=== PATIENT | female | born 1990 | race Caucasian/White ===

== ENCOUNTER 2017-02-06 23:26 | Inpatient (IN) | payer MEDICAID ==
[~2017-02-06] VITALS: Ht 175.3 cm; Wt 74.8 kg
[2017-02-06 23:35] VITALS: BP 141/88
--- NOTE | 2017-02-06 23:44 | NUR ---
PT TAKEN TO BED 7
--- NOTE | 2017-02-06 23:44 | NUR ---
26 Y/O F W/C/O LEFT FOOT LAC X 2 DAYS AGO WHILE WALKING AND HIT SIDE WALK; THERE IS OPEN LAC NOTED; SKIN IS RED AND SWOLLEN; PT ARRIVED USING CRUTCHES ASSISTANCE; PT DENIES ANY LOSS OF SENSATION; PT STATES SHE APPLIED TRIPLE ABX CREAM BUT NO RELIEF; HX: DM BS 496; GLUCOPHAGE 500MG BID ; BUT HASNT BEEN COMPLIENT FOR OVER A YEAR. FOOT APPEARS EDEMATOUS, ERYTHEMA NOTED, SMALL LAC TO GREAT TOE, PT STATES HER PAIN IS 10/10. ER MD MADE AWARE.
--- NOTE | 2017-02-06 23:44 | NUR ---
26 Y/O F W/C/O LEFT FOOT LAC X 2 DAYS AGO WHILE WALKING AND HIT SIDE WALK; THERE IS OPEN LAC NOTED; SKIN IS RED AND SWOLLEN; PT ARRIVED USING CRUTCHES ASSISTANCE; PT DENIES ANY LOSS OF SENSATION; PT STATES SHE APPLIED TRIPLE ABX CREAM BUT NO RELIEF. HX: BS 496; GLUCOPHAGE 500MG BID ; BUT HASNT BEEN COMPLIENT FOR OVER A YEAR. FANNIE WEINBERG MADE AWARE.
--- NOTE | 2017-02-06 23:48 | NUR ---
X-Ray at bedside.
[2017-02-06] MEDS ORDERED: INSULIN HUMAN REGULAR 100 UNITS/ML 10 ML VIAL SUBQ ONE (23:50)
[2017-02-07] MEDS ORDERED: VANCOMYCIN 1,000 MG in DEXTROSE 5% 250 ML IV ONE ×2
[2017-02-07] MEDS ORDERED: PIPERACILLIN/TAZOBACTAM 3.375 GM in DEXTROSE 5% 50 ML IV ONE ×2
[2017-02-07] MEDS ORDERED: NACL 0.9% 1,000 ML IV ONE
[2017-02-07] MEDS ORDERED: PIPERACILLIN/TAZOBACTAM 3.375 GM VIAL IV ONE (00:08)
[2017-02-07 00:12] LABS: BASOPHILS # (AUTO) 0.2 K/uL (0.00-0.22); BASOPHILS % (AUTO) 1.5 % (0.0-2.0); EOSINOPHILS # (AUTO) 0.3 K/uL (0-0.4); EOSINOPHILS % (AUTO) 2.7 % (0.0-4.0); HEMATOCRIT 38.7 % (36-48); HEMOGLOBIN 12.8 g/dL (12.0-16.0); LYMPHOCYTES # (AUTO) 1.7 K/uL (2.5-16.5); LYMPHOCYTES % (AUTO) 16.2 % (20.5-51.1); MEAN CORPUSCULAR HEMOGLOBIN 30 pg (27-31); MEAN CORPUSCULAR HGB CONC 33 g/dL (33-37); MEAN CORPUSCULAR VOLUME 89 fL (80-94); MONOCYTES # (AUTO) 0.6 K/uL (0.8-1.0); MONOCYTES % (AUTO) 5.8 % (1.7-9.3); NEUTROPHILS # (AUTO) 7.4 K/uL (1.8-7.7); NEUTROPHILS % (AUTO) 73.8 % (42.2-75.2); PLATELET COUNT (AUTO) 229 K/uL (140-450); RED BLOOD CELL COUNT(AUTO) 4.32 MIL/uL (4.20-5.40); RED CELL DISTRIBUTION WIDTH 12.2 % (11.6-13.7); WHITE BLOOD COUNT (AUTO) 10.3 K/uL (4.8-10.8)
[2017-02-07 00:14] LABS: APPEARANCE,URINE SL CLOUDY (CLEAR); BILIRUBIN,URINE NEGATIVE (NEGATIVE); BLOOD, URINE NEGATIVE (NEGATIVE); COLOR,URINE YELLOW (YELLOW); LEUKOCYTE ESTERASE ,URINE NEGATIVE (NEGATIVE); NITRITE, URINE NEGATIVE (NEGATIVE); UGLUCOSE 3+ (NEGATIVE)
[2017-02-07] MEDS ORDERED: KETOROLAC 30 MG/ML VIAL IVP ONE (00:15)
[2017-02-07 00:29] LABS: RBC,URINE 0-5 (RARE) /HPF (0-5); WBC,URINE 0-5 (RARE) /HPF (0-5)
[2017-02-07] MEDS ORDERED: VANCOMYCIN 1,000 MG VIAL ONE (00:31)
[2017-02-07 00:44] LABS: ANION GAP 9.2 (8-16); CARBON DIOXIDE 29.7 mmol/L (21-32); POTASSIUM 3.9 mmol/L (3.5-5.1)
[2017-02-07 00:45] LABS: CREATININE 0.8 mg/dL (0.6-1.3); TOTAL BILIRUBIN 0.3 mg/dL (0.0-1.0)
[2017-02-07 00:46] LABS: ALBUMIN 3.1 g/dL (3.4-5.0)
--- NOTE | 2017-02-07 00:58 | NUR ---
PT RESTING IN BED, CURRENTLY RECEIVING IV ANTIBIOTICS. NO S/S OF DISTRESS NOTED AT THE MOMENT.
[2017-02-07 01:14] LABS: BARBITURATE, URINE NEGATIVE ng/ml (NEG <=200); BENZODIAZEPINE, URINE NEGATIVE ng/mL (NEG <=200); CANNABINOID, URINE NEGATIVE ng/mL (NEG <=50); COCAINE, URINE NEGATIVE ng/mL (NEG <=300); OPIATE, URINE NEGATIVE ng/mL (NEG <=2000); PHENCYCLIDINE SCREEN,URINE NEGATIVE ng/mL (NEG <=25)
[2017-02-07] MEDS ORDERED: DOCUSATE SODIUM 100 MG GELCAP PO PRN (01:15)
[2017-02-07] MEDS ORDERED: ACETAMINOPHEN 325 MG TAB PO PRN (01:15)
[2017-02-07] MEDS: NACL 0.9% 1,000 ML IV SCH ×3 (01:15→20:49)
[2017-02-07] MEDS ORDERED: ONDANSETRON 4 MG/2 ML VIAL IM/IVP PRN (01:15)
[2017-02-07] MEDS ORDERED: INSULIN HUMAN REGULAR 100 UNITS/ML 10 ML VIAL IVP ONE (01:30)
[2017-02-07 01:42] LABS: PROTHROMBIN TIME 9.7 secs (10.8-13.4)
--- NOTE | 2017-02-07 01:42 | NUR ---
FOOD TRAY PROVIDED FOR PT. PER ER PT OK TO EAT.
--- NOTE | 2017-02-07 02:04 | NUR ---
Dr. Mariano Rivera at bedside evaluating patient.
--- NOTE | 2017-02-07 02:23 | NUR ---
PT RESTING IN BED, C/O PAIN TO L FOOT. ER MADE AWARE.
[2017-02-07 03:34] LABS: CHOL/HDL RATIO 2.3 (1-4.5); FREE T4 (FREE THYROXINE) 0.96 ng/dL (0.76-1.46); MAGNESIUM 1.6 mg/dL (1.8-2.4); PHOSPHORUS 3.3 mg/dL (2.5-4.9); THYROID STIMULATING HORMONE 1.04 uIU/mL (0.34-3.74)
[2017-02-07] MEDS ORDERED: DEXTROSE 50% 50 ML SYR IVP PRN ×2 (03:40→04:30)
--- NOTE | 2017-02-07 03:54 | NUR ---
PT ASLEEP, VSS, NO S/S OF DISTRESS NOTED AT THE MOMENT.
[2017-02-07] MEDS ORDERED: METF500T PO (05:57)
--- NOTE | 2017-02-07 07:05 | NUR ---
RECEIVED REPORT FROM ER NURSE, PT AWAKE AND ALERT, NO SIGNS OF ACUTE DISTRESS. BOWEL SOUNDS ACTIVE IN ALL 4 QUADRANTS. SKIN INTACT. AMBULATORY WITH CRUTCHES AT HOME. CONTINENT TO BOWEL AND BLADDER. IV PATENT AND ASYMPTOMATIC. ORIENTED TO HOSPITAL AND TO UNIT, PATIENT VERBALIZES UNDERSTANDING. BED IN LOW POSITION WITH BILATERAL HALF SIDE RAILS UP, CALL LIGHT WITHIN REACH, WILL CONTINUE TO MONITOR.
--- NOTE | 2017-02-07 07:06 | NUR ---
Patient will be admitted to care of Dr Shaw. Admited to Tele. Will go to room 111A. Belongings list completed. Report to JESSICA Diallo.
[2017-02-07] MEDS: BLOOD GLUCOSE MONITORING 1 DEV DEV FS SCH ×4 (07:30→20:00)
[2017-02-07] MEDS ORDERED: BLOOD GLUCOSE MONITORING 1 DEV DEV FS SCH (07:30)
[2017-02-07 08:00] VITALS: BP_SYST 105; BP_SYST 127; BP_DIAS 74; BP_DIAS 85
[2017-02-07] MEDS ORDERED: metFORMIN 500 MG TAB PO SCH (08:03)
--- NOTE | 2017-02-07 09:30 | NUR ---
DR BERRIOS AT PATIENT BEDSIDE TO PERFORM EXCISION AND DEBRIDEMENT.
[2017-02-07] MEDS: MORPHINE SULFATE 2 MG/ML SYR IVP PRN ×3 (09:36→20:23)
[2017-02-07] MEDS: LACTOBACILLUS RHAMNOSUS GG 1 EACH CAP PO SCH (09:48)
--- NOTE | 2017-02-07 09:50 | NUR ---
POST EXCISION AND DEBRIDEMENT PHOTO TAKEN AND WOUND CULTURE TAKEN TO LAB. PT TOLERATED PROCEDURE WELL. WILL CONTINUE TO MONITOR.
[2017-02-07] MEDS: INSULIN LISPRO SLIDING SCALE 100 UNITS/ML VIAL SUBQ PRN ×3 (09:51→20:02)
[2017-02-07] MEDS: PIPER/TAZO 3.375GM/D5W PREMIX 50 ML IV SCH ×2 (11:30→17:16)
--- NOTE | 2017-02-07 11:33 | NUR ---
RECEIVED ORDER TO TRANSFER TO MED/SURG. NOTED, WILL CARRY OUT.
--- NOTE | 2017-02-07 11:50 | NUR ---
PT SLEEPING, NO SIGNS OF ACUTE DISTRESS. BED IN LOW POSITION WITH BILATERAL HALF SIDE RAILS UP, CALL LIGHT WITHIN REACH, WILL CONTINUE TO MONITOR.
--- NOTE | 2017-02-07 14:00 | NUR ---
PT SITTING UPRIGHT EATING, NO SIGNS OF ACUTE DISTRESS. BED IN LOW POSITION WITH BILATERAL HALF SIDE RAILS UP, CALL LIGHT WITHIN REACH. WILL CONTINUE TO MONITOR.
[2017-02-07] MEDS ORDERED: GABAPENTIN 300 MG CAP PO SCH (15:00)
[2017-02-07 16:00] VITALS: BP 127/85
--- NOTE | 2017-02-07 16:35 | NUR ---
ADMINISTERED HUMALOG 2UNITS. PT TOLERATED WELL, NO SIGNS OF ACUTE DISTRESS. BLOOD SUGAR 182. WILL CONTINUE TO MONITOR.
[2017-02-07] MEDS: metFORMIN 500 MG TAB PO SCH (17:16)
[2017-02-07] MEDS: HYDROcodone/APAP 7.5/325 MG 1 TAB PO PRN (17:22)
--- NOTE | 2017-02-07 18:30 | NUR ---
ASSISTED PT TO BEDSIDE COMMODE. PT VOIDED X1. TOLERATED WELL. BACK IN BED. BED IN LOW POSITION, BILATERAL HALF SIDE RAILS UP, CALL LIGHT WITHIN REACH. WILL CONTINUE TO MONITOR.
--- NOTE | 2017-02-07 19:19 | NUR ---
PT AWAKE AND ALERT, NO SIGNS OF ACUTE DISTRESS. ENDORSED TO PLASTIC PARTS FABRICATOR TRIMMER NURSE FOR CONTINUITY OF CARE.
--- NOTE | 2017-02-07 19:20 | NUR ---
RECEIVED REPORT FROM DAY RN. PATIENT RESTING IN BED, AWAKE ALERT ORIENTED X4, NO S/S OF ACUTE DISTRESS NOTED, RESPIRATION EVEN AND UNLABORED, IV PATENT AND INTACT, INFUSING NS AT 100ML/HR. PLAN OF CARE DISCUSSED, VERBALIZED UNDERSTANDING, CALL LIGHT WITHIN REACH, SAFETY MEASURE ENSURED, WILL CONTINUE TO MONITOR.
--- NOTE | 2017-02-07 22:53 | NUR ---
PATIENT IS SLEEPING IN THE BED, NO S/S OF ACUTE DISTRESS NOTED, RESPIRATION EVEN AND UNLABORED, CALL LIGHT WITHIN REACH, SAFETY MEASURE ENSURED, WILL CONTINUE TO MONITOR.
[2017-02-08] VITALS: BP 120/76
[2017-02-08] MEDS: PIPER/TAZO 3.375GM/D5W PREMIX 50 ML IV SCH ×5 (00:16→23:36)
--- NOTE | 2017-02-08 00:20 | NUR ---
ZOSYN STARTED, PATIENT TOLERATED WELL. NO S/S OF ACUTE DISTRESS NOTED, RESPIRATION EVEN AND UNLABORED, LEFT FOOT ELEVATED ON 2 PILLOWS, CAP REFILL LESS THAN 2 SEC, PATIENT DENIES PAIN AT THIS TIME. CALL LIGHT WITHIN REACH, SAFETY MEASURE ENSURED, WILL CONTINUE TO MONITOR.
--- NOTE | 2017-02-08 02:03 | NUR ---
PATIENT IS SLEEPING AT THIS TIME, NO S/S OF ACUTE DISTRESS NOTED, RESPIRATION EVEN AND UNLABORED, CALL LIGHT WITHIN REACH, SAFETY MEASURE ENSURED, WILL CONTINUE TO MONITOR.
--- NOTE | 2017-02-08 04:19 | NUR ---
PATIENT STILL ASLEEP, NO S/S OF ACUTE DISTRESS NOTED, RESPIRATION EVEN AND UNLABORED, CALL LIGHT WITHIN REACH, SAFETY MEASURE ENSURED, WILL CONTINUE TO MONITOR.
[2017-02-08] MEDS: MORPHINE SULFATE 2 MG/ML SYR IVP PRN ×4 (05:19→20:08)
--- NOTE | 2017-02-08 05:30 | NUR ---
AFTER USING THE BATHROOM, PATIENT STATED SHE WAS IN SEVERE PAIN 9/10 ON HER LEFT FOOT. MEDICATION GIVEN ORDERED, PATIENT RESTING IN BED, NO S/S OF ACUTE DISTRESS NOTED, WILL CONTINUE TO MONITOR.
[2017-02-08 05:39] LABS: BASOPHILS # (AUTO) 0.1 K/uL (0.00-0.22); BASOPHILS % (AUTO) 1.5 % (0.0-2.0); EOSINOPHILS # (AUTO) 0.2 K/uL (0-0.4); HEMATOCRIT 34.6 % (36-48); HEMOGLOBIN 11.6 g/dL (12.0-16.0); LYMPHOCYTES # (AUTO) 1.4 K/uL (2.5-16.5); LYMPHOCYTES % (AUTO) 14.3 % (20.5-51.1); MEAN CORPUSCULAR HEMOGLOBIN 29 pg (27-31); MEAN CORPUSCULAR HGB CONC 33 g/dL (33-37); MEAN CORPUSCULAR VOLUME 88 fL (80-94); MONOCYTES # (AUTO) 0.4 K/uL (0.8-1.0); MONOCYTES % (AUTO) 4.1 % (1.7-9.3); NEUTROPHILS # (AUTO) 7.5 K/uL (1.8-7.7); NEUTROPHILS % (AUTO) 78.1 % (42.2-75.2); PLATELET COUNT (AUTO) 221 K/uL (140-450); RED BLOOD CELL COUNT(AUTO) 3.95 MIL/uL (4.20-5.40); RED CELL DISTRIBUTION WIDTH 12.4 % (11.6-13.7); WHITE BLOOD COUNT (AUTO) 9.6 K/uL (4.8-10.8)
[2017-02-08 06:01] LABS: ANION GAP 11.6 (8-16); CARBON DIOXIDE 26.3 mmol/L (21-32); CREATININE 0.5 mg/dL (0.6-1.3); POTASSIUM 3.9 mmol/L (3.5-5.1)
[2017-02-08 06:06] LABS: MAGNESIUM 1.4 mg/dL (1.8-2.4)
[2017-02-08] MEDS ORDERED: INSULIN DETEMIR 100 UNITS/ML 10 ML VIAL SUBQ SCH ×2 (06:25→09:00)
[2017-02-08] MEDS: BLOOD GLUCOSE MONITORING 1 DEV DEV FS SCH ×4 (06:47→21:31)
[2017-02-08] MEDS: INSULIN LISPRO SLIDING SCALE 100 UNITS/ML VIAL SUBQ PRN ×4 (06:48→21:42)
[2017-02-08] MEDS: NACL 0.9% 1,000 ML IV SCH ×2 (07:15→17:15)
--- NOTE | 2017-02-08 07:30 | NUR ---
ENDORSED PLAN OF CARE TO DAY RN, PATIENT IS IN STABLE CONDITION.
--- NOTE | 2017-02-08 07:31 | NUR ---
RECEIVED BEDSIDE REPORT FROM WREATH MACHINE TENDER RN. PT AWAKE AND ALERT, NO SIGNS OF ACUTE DISTRESS. BOWEL SOUNDS ACTIVE IN ALL 4 QUADRANTS. LEFT FOOT WOUND COVERED WITH CLEAN AND DRY SUMANTH WRAP. AMBULATORY WITH CRUTCHES. IV PATENT AND ASYMPTOMATIC. PATIENT DENIES PAIN AT THIS TIME. BED IN LOW POSITION WITH BILATERAL HALF SIDE RAILS UP, CALL LIGHT WITHIN REACH. WILL CONTINUE TO MONITOR.
[2017-02-08 08:00] VITALS: BP 129/79
--- NOTE | 2017-02-08 08:11 | NUR ---
PATIENT HAS BEEN SCREENED AND CATEGORIZED HIGH NUTRITION RISK. PATIENT WILL BE SEEN WITHIN 1-2 DAYS OF ADMISSION. 02/07/17-02/08/[address]
[2017-02-08] MEDS: metFORMIN 500 MG TAB PO SCH ×2 (08:29→17:36)
[2017-02-08] MEDS: GABAPENTIN 300 MG CAP PO SCH (08:30)
[2017-02-08] MEDS: LACTOBACILLUS RHAMNOSUS GG 1 EACH CAP PO SCH (08:30)
[2017-02-08] MEDS: MAG SULF 2000 MG/WATER PREMIX 50 ML IV SCH ×2 (08:31→10:52)
--- NOTE | 2017-02-08 09:30 | NUR ---
ASSISTED PT TO BEDSIDE COMMODE, TOLERATED WELL, BACK IN BED. SHOWING NO SIGNS OF ACUTE DISTRESS. BED IN LOW POSITION. BILATERAL HALF SIDE RAILS UP. CALL LIGHT WITHIN REACH. WILL CONTINUE TO MONITOR.
[2017-02-08 10:59] LABS: T4 (THYROXINE) 6.4 ug/dL (4.5-12.0)
--- NOTE | 2017-02-08 12:00 | NUR ---
PT SITTING UP IN BED, EATING LUNCH. SHOWING NO SIGNS OF ACUTE DISTRESS. BED IN LOW POSITION. BILATERAL HALF SIDE RAILS UP. CALL LIGHT WITHIN REACH. WILL CONTINUE TO MONITOR.
--- NOTE | 2017-02-08 13:26 | NUR ---
02/08/17 RD INITIAL ASSESSMENT COMPLETED PLEASE REFER TO NUTRITION ASSESSMENT UNDER CARE ACTIVITY FOR ESTIMATED NUTRITIONAL NEEDS. 1. CONTINUE CONSISTENT CARB 60 MGS DIET 2. PROVIDE NUTRITION ED CATION NEEDED 3. RD TO FOLLOW UP WITHIN 3-5 DAYS; MODERATE RISK IVAN GOODMAN, ANISH
--- NOTE | 2017-02-08 14:10 | NUR ---
PT SLEEPING. SHOWING NO SIGNS OF ACUTE DISTRESS. BED IN LOW POSITION. BILATERAL HALF SIDE RAILS UP. CALL LIGHT WITHIN REACH. WILL CONTINUE TO MONITOR.
[2017-02-08 16:00] VITALS: BP 134/87
--- NOTE | 2017-02-08 16:45 | NUR ---
CHECKED BLOOD SUGAR. RESULTS 234, INSULIN COVERAGE NEEDED.
--- NOTE | 2017-02-08 16:50 | NUR ---
PT AWAKE AND ALERT, RESTING IN BED. SHOWING NO SIGNS OF ACUTE DISTRESS. BED IN LOW POSITION. BILATERAL HALF SIDE RAILS UP. CALL LIGHT WITHIN REACH. WILL CONTINUE TO MONITOR.
--- NOTE | 2017-02-08 18:30 | NUR ---
PT SITTING UP IN BED, AWAKE AND ALERT. SHOWING NO SIGNS OF ACUTE DISTRESS. BED IN LOW POSITION. BILATERAL HALF SIDE RAILS UP. CALL LIGHT WITHIN REACH. WILL CONTINUE TO MONITOR.
--- NOTE | 2017-02-08 19:43 | NUR ---
ENDORSED PT TO NIGHT NURSE. PT IN STABLE CONDITION.
--- NOTE | 2017-02-08 19:45 | NUR ---
PATIENT IS CURRENTLY RESTING IN BED AWAKE ALERT ORIENTED AND WITH COMPLAINS OF PAIN 9/10 TO HER LT FOOT AT THIS TIME SHE IS MOANING.IVF CONTINUES TO INFUSING WELL IV SITE PATENT NO INFILTRATION NOTED.LT FOOT IS WRAPPED WITH SUMANTH BANDAGE AND IS CLEAND AND DRY ITS ALSO KEPT ELEVATED ON A PILLOW. I INSTRUCTED THE PATIENT IS SHE COULD WIGGLE HER TOES AND SHE WIGGLED HER TOES.WILL CHECK VITALS SIGNS AND THEN WILL INFORM JESSICA GAMBOA ABOUT PATIENT'S PAIN 9/10 SO HE CAN MEDICATE HER.
[2017-02-08 20:00] VITALS: BP 141/90
--- NOTE | 2017-02-08 20:00 | NUR ---
Patient's Plan of Care was discussed and reviewed with MACKENZIE: KATHERINE
--- NOTE | 2017-02-08 20:38 | NUR ---
PATIENT SLEEPING AT THIS TIME CALL LIGHT WITHIN REACH.WILL CONTINUE TO MONITOR.
--- NOTE | 2017-02-08 21:31 | NUR ---
PATIENT COMFORTABLE NO DISTRESS ACCUCHECK WAS DONE.
--- NOTE | 2017-02-08 23:06 | NUR ---
PATIENT SLEEPING CALL LIGHT WITHIN REACH.
[2017-02-09 00:15] VITALS: BP 140/78
[2017-02-09] MEDS ORDERED: MORPHINE SULFATE 2 MG/ML SYR ONE (01:03)
[2017-02-09] MEDS: MORPHINE SULFATE 2 MG/ML SYR IVP PRN ×5 (01:18→20:41)
--- NOTE | 2017-02-09 02:27 | NUR ---
PATIENT SLEEPING IN BED,IVF INFUSING WELL CALL LIGHT WITHIN REACH WILL CONTINUE TO MONITOR.
[2017-02-09] MEDS: NACL 0.9% 1,000 ML IV SCH ×3 (03:15→23:15)
--- NOTE | 2017-02-09 04:32 | NUR ---
PATIENT STABLE SLEEPING COMFORTABLY IN BED IN NO DISTRESS WILL CONTINUE TO MONITOR IVF INFUSING WELL IV SITE PATENT.
[2017-02-09] MEDS: PIPER/TAZO 3.375GM/D5W PREMIX 50 ML IV SCH ×3 (05:00→17:02)
[2017-02-09] MEDS: BLOOD GLUCOSE MONITORING 1 DEV DEV FS SCH ×4 (06:25→20:59)
--- NOTE | 2017-02-09 06:30 | NUR ---
PATIENT IS CURRENTLY RESTING IN BED IN NO DISTRESS CONTINUES TO SLEEP.IVF INFUSING WELL IV SITE PATENT CALL LIGHT WITHIN REACH WILL CONTINUE TO MONITOR.
[2017-02-09] MEDS: INSULIN LISPRO SLIDING SCALE 100 UNITS/ML VIAL SUBQ PRN ×4 (06:36→21:00)
[2017-02-09 07:06] LABS: BASOPHILS # (AUTO) 0.3 K/uL (0.00-0.22); BASOPHILS % (AUTO) 3.9 % (0.0-2.0); EOSINOPHILS # (AUTO) 0.2 K/uL (0-0.4); EOSINOPHILS % (AUTO) 2.3 % (0.0-4.0); HEMATOCRIT 33.8 % (36-48); HEMOGLOBIN 11.5 g/dL (12.0-16.0); LYMPHOCYTES # (AUTO) 2.2 K/uL (2.5-16.5); LYMPHOCYTES % (AUTO) 24.8 % (20.5-51.1); MEAN CORPUSCULAR HEMOGLOBIN 31 pg (27-31); MEAN CORPUSCULAR HGB CONC 34 g/dL (33-37); MEAN CORPUSCULAR VOLUME 89 fL (80-94); MONOCYTES # (AUTO) 0.8 K/uL (0.8-1.0); NEUTROPHILS # (AUTO) 5.3 K/uL (1.8-7.7); PLATELET COUNT (AUTO) 224 K/uL (140-450); RED BLOOD CELL COUNT(AUTO) 3.79 MIL/uL (4.20-5.40); RED CELL DISTRIBUTION WIDTH 12.3 % (11.6-13.7); WHITE BLOOD COUNT (AUTO) 8.8 K/uL (4.8-10.8)
--- NOTE | 2017-02-09 07:10 | NUR ---
PATIENT STABLE REPORT ENDORSED AT BEDSIDE TO JESSICA ATWOOD.
--- NOTE | 2017-02-09 07:11 | NUR ---
RECEIVED REPORT FROM THE BILLING CLINICIAN NURSE AT BEDSIDE FOR CONTINUITY OF CARE. PT IS SLEEPING SOUNDLY. NO SIGNS OF DISTRESS. WILL BE BACK TO ASSESS PT LATER.
[2017-02-09 07:19] LABS: ANION GAP 9.8 (8-16); CREATININE 0.5 mg/dL (0.6-1.3); POTASSIUM 3.8 mmol/L (3.5-5.1)
[2017-02-09 07:30] LABS: MAGNESIUM 1.4 mg/dL (1.8-2.4); PHOSPHORUS 3.2 mg/dL (2.5-4.9)
--- NOTE | 2017-02-09 07:45 | NUR ---
PT AWAKE AND ORIENTED. EATING BREAKFAST. PT IS L FOOT IS WRAPPED, ELEVATED ON A PILLOW. PT S/P EXCISIONAL DEBRIDEMENT ON 02/07. IV IS ON L AC 20G NS 100ML INFUSING. CRUTCHES AND BEDSIDE COMMODE AT BEDSIDE. PT V/S WITHIN NORMAL LIMITS. DENIES PAIN AT THIS TIME. PLAN FOR TODAY: KEEP PT COMFORTABLE AND CONTROL BS. WILL CONTINUE TO MONITOR PT.
[2017-02-09 08:00] VITALS: BP 126/92
[2017-02-09] MEDS: GABAPENTIN 300 MG CAP PO SCH (08:53)
[2017-02-09] MEDS: metFORMIN 500 MG TAB PO SCH ×2 (08:53→17:02)
[2017-02-09] MEDS: LACTOBACILLUS RHAMNOSUS GG 1 EACH CAP PO SCH (08:53)
[2017-02-09] MEDS ORDERED: INSULIN DETEMIR 100 UNITS/ML 10 ML VIAL SUBQ SCH (09:00)
--- NOTE | 2017-02-09 11:00 | NUR ---
PT SLEEPING SOUNDLY. NO SIGNS OF DISTRESS. WILL CONTINUE TO MONITOR PT.
--- NOTE | 2017-02-09 12:00 | NUR ---
ADMINISTERED ZOSYN AND PAIN MED. 01/03. PT TOLERATED WELL. WILL CONTINUE TO MONITOR PT.
--- NOTE | 2017-02-09 14:45 | NUR ---
PT SLEEPING SOUNDLY. NO SIGNS OF DISTRESS. WILL CONTINUE TO MONITOR PT.
[2017-02-09] MEDS ORDERED: MAG SULF 2000 MG/WATER PREMIX 50 ML IV SCH (15:53)
[2017-02-09 16:00] VITALS: BP 112/73
--- NOTE | 2017-02-09 16:00 | NUR ---
VISITING WITH FAMILY. NO SIGNS OF DISTRESS. WILL CONTINUE TO MONITOR PT.
--- NOTE | 2017-02-09 18:20 | NUR ---
EATING DINNER. NO COMPLAINTS AT THIS TIME. DISCUSSED DC, POSSIBLY TOMORROW AFTER PT EVAL. WILL CONTINUE TO MONITOR PT.
--- NOTE | 2017-02-09 19:39 | NUR ---
ENDORSED PT TO THE LAW EXAMINER NURSE AT BEDSIDE FOR CONTINUITY OF CARE. PT IN STABLE CONDITION.
--- NOTE | 2017-02-09 19:40 | NUR ---
RECD. RESTING IN BED, AWAKE, A/OX4. RESPIRATION EVEN AND UNLABORED. IV OF NS AT 100 ML/HR INFUSING, LEFT AC, G20. LEFT FOOT WITH SUMANTH WRAPPED BANDAGE, TOES POSITIVE FOR SENSATION AND MOVEMENT, CAPILLARY REFILL LESS 3 SECONDS. INSTRUCTED TO CALL NURSE BEFORE GETTING OOB FOR ASSISTANCE. PLAN OF CARE FOR THE SHIFT DISCUSSED. VERBALIZED UNDERSTANDING. PAIN IN THE LEFT FOOT /, TOLERABLE. WILL CALL NURSE WHEN PAIN INCREASES. SAFETY MEASURES ENFORCED.
[2017-02-09 20:15] VITALS: BP 118/69
--- NOTE | 2017-02-09 21:00 | NUR ---
Patient's Plan of Care was discussed and reviewed with RETIREMENT VILLAGE MANAGER: SHERIN CHIN
--- NOTE | 2017-02-09 21:00 | NUR ---
SNACK GIVEN FOR THE NIGHT, ATE 100%.
[2017-02-10] VITALS: BP 120/73
--- NOTE | 2017-02-10 00:17 | NUR ---
AWAKE, RESTING IN BED. RESPIRATION EVEN AND UNLABORED. ENDORSED TO CARLENE, CHARGE NURSE FOR CONTINUITY OF CARE.
--- NOTE | 2017-02-10 00:18 | NUR ---
RECEIVED REPORT FROM SHERIN MANN.PT IS TAKING REST.IVF IS IN PROGRESS.NO C/O PAIN NOW.WILL CONTINUE MONITORING.
[2017-02-10] MEDS: PIPER/TAZO 3.375GM/D5W PREMIX 50 ML IV SCH ×3 (00:59→12:08)
[2017-02-10] MEDS: MORPHINE SULFATE 2 MG/ML SYR IVP PRN ×2 (01:13→08:23)
--- NOTE | 2017-02-10 06:52 | NUR ---
SLEPT WELL.GJ=[id number].WILL COVER PER SLIDING SCALE.NO C/O PAIN OR ANY DISCOMFORT AT THIS TIME.
[2017-02-10] MEDS: BLOOD GLUCOSE MONITORING 1 DEV DEV FS SCH ×2 (07:04→12:22)
[2017-02-10] MEDS: INSULIN LISPRO SLIDING SCALE 100 UNITS/ML VIAL SUBQ PRN ×2 (07:05→12:10)
[2017-02-10 07:06] LABS: BASOPHILS # (AUTO) 0.3 K/uL (0.00-0.22); BASOPHILS % (AUTO) 3.8 % (0.0-2.0); EOSINOPHILS # (AUTO) 0.2 K/uL (0-0.4); EOSINOPHILS % (AUTO) 3.5 % (0.0-4.0); HEMATOCRIT 33.2 % (36-48); HEMOGLOBIN 11.2 g/dL (12.0-16.0); LYMPHOCYTES % (AUTO) 28.9 % (20.5-51.1); MEAN CORPUSCULAR HEMOGLOBIN 30 pg (27-31); MEAN CORPUSCULAR HGB CONC 34 g/dL (33-37); MEAN CORPUSCULAR VOLUME 88 fL (80-94); MONOCYTES # (AUTO) 0.4 K/uL (0.8-1.0); NEUTROPHILS # (AUTO) 3.9 K/uL (1.8-7.7); NEUTROPHILS % (AUTO) 57.8 % (42.2-75.2); PLATELET COUNT (AUTO) 249 K/uL (140-450); RED BLOOD CELL COUNT(AUTO) 3.76 MIL/uL (4.20-5.40); RED CELL DISTRIBUTION WIDTH 12.2 % (11.6-13.7); WHITE BLOOD COUNT (AUTO) 6.8 K/uL (4.8-10.8)
--- NOTE | 2017-02-10 07:20 | NUR ---
REPORT RECEIVED FROM SOLVENT MIXER NURSE, PT SLEEPING, RESP EVEN UNLABORED ON ROOM, PT AROUSES EASILY BY VOICE, INITIAL ASSESSMENT DONE, LEFT FOOT WITH SUMANTH BANDAGE DRESSING, GOOD CMS DISTALLY, LEFT LEG ELEVATED ON PILLOWS, DENIES PAIN OR DISCOMFORT, PLAN OF CARE REVIEWED, PT VERBALIZED UNDERSTANDING, CALL ENGLISH WITHIN REACH, SIDE RAILS UP X2, BED LOCKED IN LOW POSITION, WILL CONTINUE TO MONITOR.
[2017-02-10 07:23] LABS: ANION GAP 9.3 (8-16); CARBON DIOXIDE 28.4 mmol/L (21-32); CREATININE 0.6 mg/dL (0.6-1.3); POTASSIUM 3.7 mmol/L (3.5-5.1)
[2017-02-10 07:34] LABS: MAGNESIUM 1.5 mg/dL (1.8-2.4); PHOSPHORUS 3.4 mg/dL (2.5-4.9)
[2017-02-10 08:00] VITALS: BP 122/72
[2017-02-10] MEDS: LACTOBACILLUS RHAMNOSUS GG 1 EACH CAP PO SCH (08:18)
[2017-02-10] MEDS: GABAPENTIN 300 MG CAP PO SCH (08:19)
[2017-02-10] MEDS: metFORMIN 500 MG TAB PO SCH (08:19)
--- NOTE | 2017-02-10 08:23 | NUR ---
PT C/O LEFT FOOT PAIN 01/03, PRN MORPHINE GIVEN AT THIS TIME, SCHEDULED PO MEDS GIVEN, PT SRIRAM WELL, LEVEMIRE SQ TO LEFT UPPER ARM, WILL CONTINUE TO MONITOR.
[2017-02-10] MEDS ORDERED: INSULIN DETEMIR 100 UNITS/ML 10 ML VIAL SUBQ SCH (09:00)
[2017-02-10] MEDS ORDERED: MAGNESIUM OXIDE 400 MG TAB PO SCH (09:00)
--- NOTE | 2017-02-10 12:12 | NUR ---
PT COMPLAINED OF LEFT FOOT PAIN OF 8/10. NORCO PRN GIVEN AT THIS TIME. SCHEDULED ZOSYN STARTED. IV SITE WITHIN NORMAL LIMITS. INSULIN 6 UNITS GIVEN FOR BLOOD SUGAR 263 ON RIGHT UPPER ARM. PATIENT SITTING UP FOR LUNCH. WILL CONTINUE TO MONITOR.
[2017-02-10] MEDS: HYDROcodone/APAP 7.5/325 MG 1 TAB PO PRN (12:21)
[2017-02-10] MEDS ORDERED: HUMSLIDE SUBQ (14:13)
[2017-02-10] MEDS ORDERED: LEVEMIR SUBQ (14:13)
[2017-02-10] MEDS ORDERED: METF500T4 PO (14:13)
[2017-02-10] MEDS ORDERED: GABA-638 PO (14:13)
[2017-02-10] MEDS ORDERED: CLIN300C2 PO (14:14)
--- NOTE | 2017-02-10 15:26 | NUR ---
REPORT GIVEN TO JM LOPEZ.
--- NOTE | 2017-02-10 17:00 | NUR ---
DISCHARGE INSTRUCTION AND PRESCRIPTION GIVEN. VERBALIZED UNDERSTANDING POST OP SHOES GIVEN , DRESSING CHANGE AND EXTRA SUPPLIES GIVEN FOR DRESSING CHANGE . D/C PATIENT ACCOMPANY WITH HER STABLE CONDITION UPON DISCHARGE.
== END 2017-02-10 18:55 | disposition home or self-care (01) | DRG 351 ==
LOC: MED 23:26 → MTU 02-07 01:15
PROVIDERS: ADMIT Family Medicine; ATTEND Family Medicine
PROC: 0JBR0ZZ Excision of Left Foot Subcutaneous Tissue and Fascia, Open Approach (ICD-10-PCS; principal; 2017-02-07)
DX: S96.122A Laceration of muscle and tendon of long extensor muscle of toe at ankle and foot level, left foot, initial encounter (principal); E11.00 Type 2 diabetes mellitus with hyperosmolarity without nonketotic hyperglycemic-hyperosmolar coma (NKHHC); E11.40 Type 2 diabetes mellitus with diabetic neuropathy, unspecified; I11.9 Hypertensive heart disease without heart failure; E44.0 Moderate protein-calorie malnutrition; E87.8 Other disorders of electrolyte and fluid balance, not elsewhere classified; E83.42 Hypomagnesemia; E87.1 Hypo-osmolality and hyponatremia; L03.032 Cellulitis of left toe; E11.65 Type 2 diabetes mellitus with hyperglycemia; X58.XXXA Exposure to other specified factors, initial encounter; F43.9 Reaction to severe stress, unspecified; R00.0 Tachycardia, unspecified; F15.10 Other stimulant abuse, uncomplicated; F17.210 Nicotine dependence, cigarettes, uncomplicated; R74.0 Nonspecific elevation of levels of transaminase and lactic acid dehydrogenase [LDH]; Z90.49 Acquired absence of other specified parts of digestive tract; Z56.0 Unemployment, unspecified; Z68.24 Body mass index [BMI] 24.0-24.9, adult; Y93.89 Activity, other specified; Y92.89 Other specified places as the place of occurrence of the external cause; Y99.8 Other external cause status; Z79.84 Long term (current) use of oral hypoglycemic drugs
CPT/HCPCS: 36415; 71010; 73630; 80048; 80053; 80305; 81001; 81025; 82009; 82150; 82948; 83036; 83605; 83690; 83735; 83880; 84100; 84436; 84439; 84443; 84479; 84484; 85025; 85610; 85730; 87040; 87070; 87075; 87077; 87081; 87186; 87205; 93005; 93925; 93970; 96361; 96365; 96366; 96367; 96372; 96375; 99285; J1815; J1885; J2270; J2543; J3370; J3475; J7030; J7060; Q0092

== ENCOUNTER 2017-03-11 22:45 | Inpatient (IN) | payer MEDICAID ==
[~2017-03-11] VITALS: Ht 175.3 cm; Wt 67.6 kg
[~2017-03-11 22:45] MED LIST: CLIN300C2 PO; GABA-638 PO; HUMSLIDE SUBQ; LEVEMIR SUBQ; METF500T4 PO
--- NOTE | 2017-03-11 22:57 | NUR ---
PT TAKEN TO OF2
--- NOTE | 2017-03-11 23:04 | NUR ---
Note undone in EDM - 03/11/17 at 2322 by MEDSP 26Y/F PT. PRESNTS TO ED WITH C/O LT. FOOT PAIN. PT. WAS ADMITTED AT [facility] FOR CUT WOUND TO LT. FOOT, HAVENT F/U AFTER D/C. ON SATURDAY FOUND OUT LT. FOOT SWELLING. NO MEDICAL HX. AAO X4, AMBULATORY WITH CRUSHES. LT. FOOT SUMANTH WRAP, MILD SWELLING NOTED. NO DISCHARGE. C/O PAIN 12/03. VSS, ER MADE AWARE OF PT. STATUS.
--- NOTE | 2017-03-11 23:04 | NUR ---
26Y/F PT. PRESNTS TO ED WITH C/O LT. FOOT PAIN. PT. WAS ADMITTED AT [facility] FOR CUT WOUND TO LT. FOOT, HAVENT F/U AFTER D/C. ON SATURDAY FOUND OUT LT. FOOT SWELLING. HX. DM AAO X4, AMBULATORY WITH CRUSHES. LT. FOOT SUMANTH WRAP, MILD SWELLING NOTED. NO DISCHARGE. C/O PAIN 12/03. VSS, ER MADE AWARE OF PT. STATUS.
--- NOTE | 2017-03-11 23:11 | NUR ---
Dr. Moreno evaluating patient at bedside.
--- NOTE | 2017-03-11 23:23 | NUR ---
PT MOVED TO BED 6
[2017-03-11] MEDS ORDERED: KETOROLAC 30 MG/ML VIAL IVP ONE (23:25)
[2017-03-11] MEDS ORDERED: LEVOFLOXACIN 500 MG/D5W PREMIX 100 ML IV ONE (23:25)
[2017-03-11] MEDS ORDERED: PIPERACILLIN/TAZOBACTAM 3.375 GM in DEXTROSE 5% 50 ML IV ONE (23:25)
--- NOTE | 2017-03-11 23:29 | NUR ---
Patient noted to have existing wounds upon arrival to ER. Photos taken of wound and placed in chart. Wound covered with dressing. Physician informed.
--- NOTE | 2017-03-11 23:32 | NUR ---
lab at bedside
--- NOTE | 2017-03-11 23:32 | NUR ---
xray at bedside
[2017-03-11] MEDS ORDERED: INSULIN HUMAN REGULAR 100 UNITS/ML 10 ML VIAL IVP ONE (23:35)
--- NOTE | 2017-03-11 23:35 | NUR ---
Patient noted to have existing wounds upon arrival to ER. Photos taken of wound and placed in chart. Wound covered with dressing. Physician informed.
[2017-03-11] MEDS ORDERED: PIPERACILLIN/TAZOBACTAM 3.375 GM VIAL IV ONE (23:37)
[2017-03-11 23:47] LABS: BASOPHILS # (AUTO) 0.2 K/uL (0.00-0.22); BASOPHILS % (AUTO) 2.6 % (0.0-2.0); EOSINOPHILS # (AUTO) 0.1 K/uL (0-0.4); EOSINOPHILS % (AUTO) 0.8 % (0.0-4.0); HEMATOCRIT 40.7 % (36-48); HEMOGLOBIN 13.3 g/dL (12.0-16.0); LYMPHOCYTES # (AUTO) 1.9 K/uL (2.5-16.5); LYMPHOCYTES % (AUTO) 22.3 % (20.5-51.1); MEAN CORPUSCULAR HEMOGLOBIN 29 pg (27-31); MEAN CORPUSCULAR HGB CONC 33 g/dL (33-37); MEAN CORPUSCULAR VOLUME 88 fL (80-94); MONOCYTES # (AUTO) 0.3 K/uL (0.8-1.0); NEUTROPHILS # (AUTO) 6.1 K/uL (1.8-7.7); NEUTROPHILS % (AUTO) 70.3 % (42.2-75.2); PLATELET COUNT (AUTO) 426 K/uL (140-450); RED BLOOD CELL COUNT(AUTO) 4.65 MIL/uL (4.20-5.40); RED CELL DISTRIBUTION WIDTH 12.3 % (11.6-13.7); WHITE BLOOD COUNT (AUTO) 8.6 K/uL (4.8-10.8)
[2017-03-11] MEDS ORDERED: NACL 0.9% 1,000 ML IV ONE (23:55)
[2017-03-11] MEDS ORDERED: NACL 0.9% 2,000 ML IV ONE (23:55)
[2017-03-12 00:04] LABS: ALBUMIN 3.3 g/dL (3.4-5.0); ANION GAP 8.7 (8-16); CARBON DIOXIDE 31.7 mmol/L (21-32); POTASSIUM 4.4 mmol/L (3.5-5.1); TOTAL BILIRUBIN 0.3 mg/dL (0.0-1.0)
[2017-03-12] MEDS: NACL 0.9% 1,000 ML IV SCH ×4 (00:39→22:40)
[2017-03-12] MEDS ORDERED: DOCUSATE SODIUM 100 MG GELCAP PO PRN (00:40)
[2017-03-12] MEDS ORDERED: KETOROLAC 30 MG/ML VIAL IVP PRN (00:40)
[2017-03-12] MEDS ORDERED: ACETAMINOPHEN 325 MG TAB PO PRN (00:40)
[2017-03-12] MEDS ORDERED: ONDANSETRON 4 MG/2 ML VIAL IM/IVP PRN (00:40)
[2017-03-12] MEDS ORDERED: PIPERACILLIN/TAZOBACTAM 3.375 GM in DEXTROSE 5% 50 ML IV SCH ×4 (00:45)
[2017-03-12] MEDS ORDERED: INSULIN DETEMIR 100 UNITS/ML 10 ML VIAL SUBQ SCH ×2 (00:50→01:45)
[2017-03-12] MEDS ORDERED: SODIUM CHLORIDE 1 GM TAB PO SCH (00:50)
--- NOTE | 2017-03-12 01:00 | NUR ---
Patient will be admitted to care of DR. CHAVEZ. Admited to TELEMETRY. Will go to room 105A. Belongings list completed. Report to TRINH LOPEZ.
--- NOTE | 2017-03-12 01:30 | NUR ---
PT ARRIVED VIA GURNEY FROM ER. PT IS AAOX4, ON ROOM AIR, NO SIGNS OF ACUTE DISTRESS. LEFT FOOT CELLULITIS WRAPPED WITH GAUZE BANDAGE, DRY AND INTACT. AMBULATORY WITH THE USE OF CRUTCHES. IV ACCESS PATENT, INTACT AND ASYMPTOMATIC. PLAN OF CARE DISCUSSED, PT VERBALIZED UNDERSTANDING, BED ON LOW POSITION, BILATERAL HALF SIDE RAILS UP, CALL LIGHT WITHIN REACH, WILL CONTINUE TO MONITOR.
[2017-03-12] MEDS ORDERED: MORPHINE SULFATE 4 MG/ML SYR IVP SCH (01:40)
[2017-03-12] MEDS: metFORMIN 500 MG TAB PO SCH ×3 (01:45→16:42)
[2017-03-12 01:50] VITALS: BP 134/90
[2017-03-12] MEDS ORDERED: DEXTROSE 50% 50 ML SYR IVP PRN (01:50)
[2017-03-12 02:00] LABS: APPEARANCE,URINE HAZY (CLEAR); BILIRUBIN,URINE NEGATIVE (NEGATIVE); BLOOD, URINE TRACE-I (NEGATIVE); COLOR,URINE YELLOW (YELLOW); LEUKOCYTE ESTERASE ,URINE TRACE (NEGATIVE); NITRITE, URINE NEGATIVE (NEGATIVE); PH,URINE 6.5 (5.0-9.0); UGLUCOSE 3+ (NEGATIVE)
[2017-03-12 02:00] LABS: PROTHROMBIN TIME 9.3 secs (10.8-13.4)
[2017-03-12 02:11] LABS: BARBITURATE, URINE NEG. ng/ml (NEG <=200); BENZODIAZEPINE, URINE NEG. ng/mL (NEG <=200); CANNABINOID, URINE NEG. ng/mL (NEG <=50); COCAINE, URINE NEG. ng/mL (NEG <=300); OPIATE, URINE NEG. ng/mL (NEG <=2000); PHENCYCLIDINE SCREEN,URINE NEG. ng/mL (NEG <=25)
[2017-03-12 02:15] LABS: CHOL/HDL RATIO 3.3 (1-4.5); FREE T4 (FREE THYROXINE) 0.84 ng/dL (0.76-1.46); MAGNESIUM 1.6 mg/dL (1.8-2.4); PHOSPHORUS 3.6 mg/dL (2.5-4.9); THYROID STIMULATING HORMONE 0.73 uIU/mL (0.34-3.74)
[2017-03-12] MEDS: MORPHINE SULFATE 2 MG/ML SYR IVP PRN ×4 (02:37→19:39)
[2017-03-12 02:40] LABS: RBC,URINE 0-5 (RARE) /HPF (0-5); WBC,URINE 20-60 /HPF (0-5)
--- NOTE | 2017-03-12 03:45 | NUR ---
PT IS SLEEPING, EASY TO AROUSE. NO SIGNS OF ACUTE DISTRESS, BED IN LOW POSITION, BILATERAL HALF SIDE RAILS UP, CALL LIGHT WITHIN REACH, WILL CONTINUE TO MONITOR.
--- NOTE | 2017-03-12 03:50 | NUR ---
CALLED JESSICA HOGAN (ORCHESTRA TEACHER) TO REQUEST 1 SALT 1GM TABLET THAT IS DUE TO BE ADMINISTERED TO PT. STATED MEDICATION IS NOT AVAILABLE AT THIS TIME, UNABLE TO OVERRIDE. NOTIFIED DR BARNES THAT MEDICATION WAS NOT AVAILABLE, AND WOULD BE UNABLE TO ADMINISTER MED AT THIS TIME. DR BARNES STATED IT WAS FINE AND FOR IT TO BE ADMINISTERED IN THE MORNING WITH NEXT SCHEDULED DOSE DUE AT 0900.
[2017-03-12 04:00] VITALS: BP 129/85
[2017-03-12] MEDS: BLOOD GLUCOSE MONITORING 1 DEV DEV FS SCH ×4 (06:59→21:56)
[2017-03-12] MEDS: INSULIN LISPRO SLIDING SCALE 100 UNITS/ML VIAL SUBQ PRN ×4 (07:08→21:59)
--- NOTE | 2017-03-12 07:10 | NUR ---
TRIED TO CALL AND PAGED DR. BARNES REGARDING PT HIGH GLUCOSE READING OF 585, BUT WAS UNSUCCESSFUL. THE NUMBER PAGED IS OUT OF SERVICE, CALLED THE RESIDENTS NUMBER WELL BUT NO ANSWER. CHARGE NURSE ROSEMARY MADE AWARE. UNABLE TO REACH DR. BARNES, WILL ENDORSE TO AM NURSE. 10 UNITS OF HUMALOG WERE ADMINISTERED. PT IS AA0X4, BED ON LOW POSITION, BILATERAL HALF SIDE RAILS UP, CALL LIGHT WITHIN REACH, WILL CONTINUE TO MONITOR.
--- NOTE | 2017-03-12 07:20 | NUR ---
RECEIVED PT REPORT FROM WAD BLANKING PRESS ADJUSTER. PT IS AWAKE, ALERT, OX4. PT SHOWED NO S/S OF ACUTE DISTRESS. DRESSING NOTED ON THE LEFT FOOT. DRESSING IS DRY AND INTACT. IV NOTED ON THE RIGHT HAND 20G. NOT SIGNS OF INFILTRATION OR SWELLING. PT AMB W/ CRUTCHES, CALL LIGHT AND PERSONAL ITEMS WITH REACH. BED IN LOW POSITION.
--- NOTE | 2017-03-12 07:28 | NUR ---
ENDORSED PT TO AM NURSE FOR CONTINUITY OF CARE, PT IS STABLE. BLOOD GLUCOSE READING OF 585, AM NURSE MADE AWARE. .
--- NOTE | 2017-03-12 07:30 | NUR ---
MADE DR BARNES AWARE OF PATIENT'S BLOOD SUGAR OF 585
[2017-03-12 08:00] VITALS: BP 128/68
[2017-03-12] MEDS: INSULIN DETEMIR 100 UNITS/ML 10 ML VIAL SUBQ SCH (08:16)
[2017-03-12] MEDS: LACTOBACILLUS RHAMNOSUS GG 1 EACH CAP PO SCH (08:20)
[2017-03-12] MEDS: GABAPENTIN 300 MG CAP PO SCH (08:20)
[2017-03-12] MEDS: PANTOPRAZOLE 40 MG INJ VIAL IVP SCH (08:21)
--- NOTE | 2017-03-12 09:12 | NUR ---
PATIENT HAS BEEN SCREENED AND CATEGORIZED HIGH NUTRITION RISK. PATIENT WILL BE SEEN WITHIN 1-2 DAYS OF ADMISSION. 03/12/17-03/13/[address]
--- NOTE | 2017-03-12 09:58 | NUR ---
WOUND CARE EVALUATION NOTES: REASON FOR EVALUATION: MULTIPLE WOUNDS COMPLETE SKIN ASSESSMENT DONE ON THIS 16 Y/O FEMALE PATIENT FROM HOME TO [facility], WITH INITIAL DIAGNOSIS OF LEFT FOOT PAIN. PAST MEDICAL HISTORY INCLUDE DM II AND SUBSTANCE USE. ALL ABOVE INFORMATION WAS OBTAINED FROM PT AND THE ADMISSION H&P. LABS ARE WBC 8.6, H/H 13.3/40.7, GLUCOSE 625, ALBUMIN 3.3, PT/INR 9.3/0.9 PTT 27.2. CURRENT MEDS INCLUDE METFORMIN, INSULIN, GABAPENTIN AND PANTOPRAZOLE. PATIENT IS AWAKE, ALERT, AND ABLE TO FOLLOW COMMANDS. SKIN WARM TO TOUCH WNL, SHORT TOENAILS, NO EDEMA, HAIR GROWTH AND BILATERAL PEDAL PULSES PRESENT. PAIN 2/10, WOUND CULTURE OBTAINED, PLAN OF CARE DISCUSSED WITH PT AND PRIMARY NURSE. PT ABLE TO VERBALIZE UNDERSTANDING. INTEGUMENTARY: LEFT HALLUX ABSCESS 3X2 CM, SMALL AMOUNT OF PURULENT DRAINAGE, ERYTHEMATOUS MULTIPLE SCABS ON LEFT 2ND, 3RD AND 4TH TOES S/P LACERATIONS RECOMMENDATIONS: -SURGEON TO CONSULT LEFT HALLUX ABSCESS FOR POSSIBLE I&D -PIANO ACCOMPANIST CONSULT -VENOUS DOPPLER U/S -CLEANSE LEFT HALLUX ABSCESS WITH NS, APPLY XEROFORM AND DRY DRESSING WRAP WITH KERLIX QD AND PRN IF SOILING -CLEAN MULTIPLE SCABS ON LEFT 2ND, 3RD AND 4TH TOES WITH NS. PAT DRY, PAINT WITH BETADINE SOLUTION QD AND OFFICE COORDINATOR -TURN AND REPOSITION PATIENT Q2H -ASSESS AND MONITOR SKIN CONDITION DURING POSITION CHANGE, PLEASE PAY ATTENTION TO LLE AND HEELS -OFFLOAD BILATERAL HEELS BY PLACING PILLOWS UNDER CALVES AT ALL TIMES, UNLESS OTHERWISE CONTRAINDICATED -PRESSURE REDISTRIBUTION SURFACE THERAPY -KEEP SKIN CLEAN AND DRY AT ALL TIMES. RECOMMENDATIONS DISCUSSED WITH PRIMARY RN AND DR. SEGUNDO WILL FOLLOW UP PATIENT Q 7 -10 DAYS AND PRN. PLEASE CONTACT WOUND CARE NURSE FOR ANY CONCERNS AND CHANGES IN WOUND CONDITION Addendum: 03/12/17 at 1021 by I Naima(Bernadette) Mckeon RN CORRECTION: PT IS 26 Y/O
--- NOTE | 2017-03-12 11:38 | NUR ---
CALLED [facility]LS[facility] AND SPOKE WITH IVY. HE IS THE CM, AND I DO NOT HAVE TO FAX TO [place]. FAXED INITIAL REVIEW TO JOAN[facility] OLSON [phone] PHONE [phone] IVY [phone]
[2017-03-12] MEDS: SODIUM CHLORIDE 1 GM TAB PO SCH (11:49)
[2017-03-12] MEDS ORDERED: MAG SULF 2000 MG/WATER PREMIX 50 ML IV SCH (12:00)
--- NOTE | 2017-03-12 12:06 | NUR ---
03/12/17 RD INITIAL ASSESSMENT COMPLETED PLEASE REFER TO NUTRITION ASSESSMENT UNDER CARE ACTIVITY FOR ESTIMATED NUTRITIONAL NEEDS. 1. CONTINUE 60 GMS CONSISTENT CARBOHYDRATE DIET 2. VITAMIN C FOR WOUND HEALING 250 MG A DAY 3. PROVIDE NUTRITION EDUCATION NEEDED 4. RD TO FOLLOW UP WITHIN 2-3 DAYS; HIGH RISK IVAN GOODMAN RD
--- NOTE | 2017-03-12 12:30 | NUR ---
INCISION AND DRAINAGE OF THE LEFT FOOT WOUND DONE AT BEDSIDE BY DR. ADKINS. PICTURE TAKEN, FILED IN THE CHART.
[2017-03-12 13:04] LABS: BASOPHILS # (AUTO) 0.2 K/uL (0.00-0.22); BASOPHILS % (AUTO) 1.7 % (0.0-2.0); EOSINOPHILS # (AUTO) 0.1 K/uL (0-0.4); HEMATOCRIT 35.6 % (36-48); LYMPHOCYTES # (AUTO) 2.9 K/uL (2.5-16.5); LYMPHOCYTES % (AUTO) 31.4 % (20.5-51.1); MEAN CORPUSCULAR HEMOGLOBIN 30 pg (27-31); MEAN CORPUSCULAR HGB CONC 34 g/dL (33-37); MEAN CORPUSCULAR VOLUME 88 fL (80-94); MONOCYTES # (AUTO) 0.3 K/uL (0.8-1.0); MONOCYTES % (AUTO) 3.8 % (1.7-9.3); NEUTROPHILS # (AUTO) 5.7 K/uL (1.8-7.7); NEUTROPHILS % (AUTO) 62.1 % (42.2-75.2); PLATELET COUNT (AUTO) 393 K/uL (140-450); RED BLOOD CELL COUNT(AUTO) 4.06 MIL/uL (4.20-5.40); RED CELL DISTRIBUTION WIDTH 12.3 % (11.6-13.7); WHITE BLOOD COUNT (AUTO) 9.2 K/uL (4.8-10.8)
[2017-03-12 13:16] LABS: ANION GAP 10.1 (8-16); CARBON DIOXIDE 25.9 mmol/L (21-32); CREATININE 0.6 mg/dL (0.6-1.3)
[2017-03-12 16:00] VITALS: BP 123/80
--- NOTE | 2017-03-12 19:28 | NUR ---
ENDORSED PT TO NIGHT NURSE FOR CONTINUITY OF CARE, PT IS IN STABLE CONDITION.
--- NOTE | 2017-03-12 19:29 | NUR ---
RECEIVED PT FROM DAY NURSE, PT IN STABLE CONDITION NO S/S OF DISTRESS NOTED. PT IS AAOX4 ON RA. IV TO R HAND 22G PATENT AND INTACT. RESPIRATIONS ARE EVEN AND UNLABORED, BOWEL SOUNDS PRESENT. PT HAS DRESSING IN PLACE ON LEFT FOOT, DRY AND INTACT. INITIAL ASSESSMENT COMPLETE. PLAN OF CARE DISCUSSED WITH PT, VERBALIZED UNDERSTANDING. ALL SAFETY PRECAUTIONS MET, CALL LIGHT WITHIN REACH, WILL CONTINUE TO MONITOR
--- NOTE | 2017-03-12 22:00 | NUR ---
ALL DUE MEDICATIONS WERE GIVEN, PT TOLERATED WELL. PT GIVEN SANDWICH PER REQUEST. ALL NEEDS MET, WILL CONTINUE TO MONITOR
[2017-03-13] VITALS: BP 123/84
--- NOTE | 2017-03-13 | NUR ---
PT VS STABLE, NO S/S OF DISTRESS NOTED. WILL CONTINUE TO MONITOR
[2017-03-13] MEDS: MORPHINE SULFATE 2 MG/ML SYR IVP PRN ×2 (01:25→07:42)
[2017-03-13 06:05] LABS: BASOPHILS # (AUTO) 0.4 K/uL (0.00-0.22); BASOPHILS % (AUTO) 4.1 % (0.0-2.0); EOSINOPHILS # (AUTO) 0.1 K/uL (0-0.4); EOSINOPHILS % (AUTO) 0.8 % (0.0-4.0); HEMOGLOBIN 11.2 g/dL (12.0-16.0); LYMPHOCYTES # (AUTO) 2.7 K/uL (2.5-16.5); LYMPHOCYTES % (AUTO) 29.1 % (20.5-51.1); MEAN CORPUSCULAR HEMOGLOBIN 30 pg (27-31); MEAN CORPUSCULAR HGB CONC 34 g/dL (33-37); MEAN CORPUSCULAR VOLUME 88 fL (80-94); MONOCYTES # (AUTO) 0.4 K/uL (0.8-1.0); MONOCYTES % (AUTO) 4.2 % (1.7-9.3); NEUTROPHILS # (AUTO) 5.8 K/uL (1.8-7.7); NEUTROPHILS % (AUTO) 61.8 % (42.2-75.2); PLATELET COUNT (AUTO) 330 K/uL (140-450); RED BLOOD CELL COUNT(AUTO) 3.77 MIL/uL (4.20-5.40); RED CELL DISTRIBUTION WIDTH 12.5 % (11.6-13.7); WHITE BLOOD COUNT (AUTO) 9.4 K/uL (4.8-10.8)
[2017-03-13 06:21] LABS: ANION GAP 6.9 (8-16); CARBON DIOXIDE 29.9 mmol/L (21-32); CREATININE 0.5 mg/dL (0.6-1.3); POTASSIUM 3.8 mmol/L (3.5-5.1)
[2017-03-13] MEDS: BLOOD GLUCOSE MONITORING 1 DEV DEV FS SCH ×4 (06:36→20:20)
[2017-03-13] MEDS: INSULIN LISPRO SLIDING SCALE 100 UNITS/ML VIAL SUBQ PRN ×4 (06:40→20:26)
[2017-03-13] MEDS: NACL 0.9% 1,000 ML IV SCH ×2 (07:29→22:09)
--- NOTE | 2017-03-13 07:33 | NUR ---
GAVE REPORT TO DAY NURSE AT BEDSIDE FOR CONTINUITY PT IN STABLE CONDITION, NO S/S OF DISTRESS NOTED.
--- NOTE | 2017-03-13 07:40 | NUR ---
RECEIVED REPORT FROM TENSILE TESTER NURSE, PT IS RESTING IN BED A/OX4, AMBULATES WITH ASSIST, IV IS ON THE FA, PATENT, INTACT, FLUSHING WELL, PATIENT'S LEFT FOOT IS WRAPPED WITH BANDAGE, NO S/S OF RESPIRATORY DISTRESS OR DISCOMFORT NOTED, DISCUSSED PLAN OF CARE WITH PT, PT VERBALIZED UNDERSTANDING, SAFETY/FALL PRECAUTIONS ARE IN PLACE, CALL LIGHT WITHIN REACH, WILL CONTINUE TO MONITOR.
[2017-03-13 08:00] VITALS: BP 145/98
[2017-03-13] MEDS: LACTOBACILLUS RHAMNOSUS GG 1 EACH CAP PO SCH (08:39)
[2017-03-13] MEDS: metFORMIN 500 MG TAB PO SCH ×2 (08:39→16:56)
[2017-03-13] MEDS: GABAPENTIN 300 MG CAP PO SCH (08:39)
[2017-03-13] MEDS: PANTOPRAZOLE 40 MG INJ VIAL IVP SCH (08:39)
--- NOTE | 2017-03-13 08:39 | NUR ---
DUE MEDICATION GIVEN, PT TOLERATED WELL, CALL LIGHT IS WITHIN REACH.
[2017-03-13] MEDS: SODIUM CHLORIDE 1 GM TAB PO SCH (08:40)
[2017-03-13] MEDS: INSULIN DETEMIR 100 UNITS/ML 10 ML VIAL SUBQ SCH (09:00)
[2017-03-13] MEDS ORDERED: MAG SULF 2000 MG/WATER PREMIX 50 ML IV SCH (09:30)
[2017-03-13 09:51] LABS: T3 UPTAKE 23 % (24-39); T4 (THYROXINE) 6.8 ug/dL (4.5-12.0)
--- NOTE | 2017-03-13 10:50 | NUR ---
PT IS SLEEPING IN BED, CALL LIGHT IS WITHIN REACH.
--- NOTE | 2017-03-13 12:00 | NUR ---
PT RESTING IN BED, WATCHING TV, CALL LIGHT WITHIN REACH.
--- NOTE | 2017-03-13 12:02 | NUR ---
FAXED CONCURRENT REVIEW TO [facility] [phone] PHONE [phone] IVY I SPOKE WITH IVY AND HE SAID FOR HOME HEALTH, CALL THEIR STAFF THERAPIST AT [phone], DEDE FAX FOR DEDE IS [phone]
--- NOTE | 2017-03-13 14:50 | NUR ---
PT IS RESTING IN BED AT THIS TIME, WATCHING TV, PATIENT'S FAMILY MEMBER IS AT BEDSIDE, ALL NEEDS ARE MET, CALL LIGHT IS WITHIN REACH, WILL CONTINUE TO MONITOR.
[2017-03-13 16:00] VITALS: BP 124/81
--- NOTE | 2017-03-13 16:08 | NUR ---
PT RESTING IN BED, BLOOD SUGAR CHECKED, BS 319, CALL LIGHT WITHIN REACH, WILL CONTINUE TO MONITOR.
[2017-03-13] MEDS: HYDROcodone/APAP 7.5/325 MG 1 TAB PO PRN (17:03)
--- NOTE | 2017-03-13 19:21 | NUR ---
ENDORSED PT TO STENCIL CUTTER NURSE FOR CONTINUITY OF CARE, PT STABLE AT THIS TIME.
--- NOTE | 2017-03-13 19:30 | NUR ---
RECEIVED PT IN STABLE CONDITION FROM AM NURSE. AWAKE,ALERT AND ORIENTED X4. MED SURG PT. WITH NO C/O ANY PAIN ON THE LT FOOT ULCER AT THIS TIME. HAS LT FOOT DRESSING WITH SUMANTH WRAP. WITH IVF INFUSING WELL ON THE RT HAND #22. CLEAR AND PATENT. PLAN OF CARE DISCUSSED AND VERBALIZED UNDERSTANDING. CALL LIGHT PLACED WITHIN EASY REACH. HAS CANE AT BEDSIDE. ENCOURAGED TO CALL IF NEED ASSISTANCE. WILL CONTINUE TO MONITOR.
--- NOTE | 2017-03-13 20:26 | NUR ---
BLOOD SUGAR WAS CHECKED RESULT 308. HUMALOG INSULIN COVERAGE GIVEN SUB Q. PROVIDED SOME SNACK. WILL CONTINUE TO MONITOR.
--- NOTE | 2017-03-13 22:00 | NUR ---
MADE ROUNDS. SLEEPING WELL AT THIS TIME. NO S/S OF ANY DISCOMFORT NOTED.
[2017-03-13 23:58] VITALS: BP 126/83
[2017-03-14] MEDS: HYDROcodone/APAP 7.5/325 MG 1 TAB PO PRN (00:04)
--- NOTE | 2017-03-14 02:30 | NUR ---
MADE ROUNDS. PT IS ASLEEP. NO S/S OF ANY DISCOMFORT NOR PAIN NOTED.
[2017-03-14] MEDS: NACL 0.9% 1,000 ML IV SCH (04:10)
--- NOTE | 2017-03-14 04:22 | NUR ---
MADE ROUNDS. ASLEEP .NO S/S OF ANY DISCOMFORT/ PAIN NOTED.
[2017-03-14 04:29] VITALS: BP 131/80
[2017-03-14] MEDS: MORPHINE SULFATE 2 MG/ML SYR IVP PRN ×3 (04:36→22:00)
[2017-03-14] MEDS: BLOOD GLUCOSE MONITORING 1 DEV DEV FS SCH ×5 (06:13→20:44)
[2017-03-14] MEDS: INSULIN LISPRO SLIDING SCALE 100 UNITS/ML VIAL SUBQ PRN ×4 (06:15→20:42)
--- NOTE | 2017-03-14 06:15 | NUR ---
BLOOD SUGAR WAS CHECKED THIS AM RESULT 197. HUMALOG INSULIN COVERAGE 2 UNITS SUBQ GIVEN.
[2017-03-14 06:46] LABS: OSMOLALITY,URINE 558 mOsmol/kg (.)
[2017-03-14 06:52] LABS: BASOPHILS # (AUTO) 0.2 K/uL (0.00-0.22); BASOPHILS % (AUTO) 3.7 % (0.0-2.0); EOSINOPHILS # (AUTO) 0.1 K/uL (0-0.4); EOSINOPHILS % (AUTO) 1.1 % (0.0-4.0); HEMATOCRIT 32.5 % (36-48); HEMOGLOBIN 10.7 g/dL (12.0-16.0); LYMPHOCYTES # (AUTO) 2.4 K/uL (2.5-16.5); LYMPHOCYTES % (AUTO) 36.4 % (20.5-51.1); MEAN CORPUSCULAR HEMOGLOBIN 29 pg (27-31); MEAN CORPUSCULAR HGB CONC 33 g/dL (33-37); MEAN CORPUSCULAR VOLUME 88 fL (80-94); MONOCYTES # (AUTO) 0.4 K/uL (0.8-1.0); NEUTROPHILS # (AUTO) 3.5 K/uL (1.8-7.7); NEUTROPHILS % (AUTO) 52.8 % (42.2-75.2); PLATELET COUNT (AUTO) 323 K/uL (140-450); RED BLOOD CELL COUNT(AUTO) 3.69 MIL/uL (4.20-5.40); RED CELL DISTRIBUTION WIDTH 12.3 % (11.6-13.7); WHITE BLOOD COUNT (AUTO) 6.7 K/uL (4.8-10.8)
[2017-03-14 07:06] LABS: CARBON DIOXIDE 29.7 mmol/L (21-32); CREATININE 0.5 mg/dL (0.6-1.3); POTASSIUM 3.7 mmol/L (3.5-5.1)
--- NOTE | 2017-03-14 07:11 | NUR ---
ENDORSED PT IN STABLE CONDITION TO AM NURSE FOR CONTINUITY OF CARE.
--- NOTE | 2017-03-14 07:12 | NUR ---
RECEIVED REPORT FROM THE LICENSED EMBALMER SUPERVISOR NURSE AT BEDSIDE FOR CONTINUITY OF CARE. PT IS SLEEPING. NO SIGNS OF DISTRESS. WILL BE BACK TO ASSESS PT. IV ON R HAND 22G NS 110ML/HR INFUSING.
--- NOTE | 2017-03-14 08:00 | NUR ---
PT AWAKE AND ALERT, READY TO EAT BREAKFAST. INTRODUCED MYSELF AND UPDATED THE BOARD. V/S WITHIN NORMAL RANGE. DENIES PAIN AT THIS TIME. EDUCATED PT ABOUT IMPORTANCE OF FREQUENT BS CHECKS AND COMPLIANCE WITH DIABETIC MEDICATION. EDUCATED PT ABOUT HYGIENE AND HOW TO TAKE CARE OF HER DIABETIC ULCERS ON FEET. PT VERBALIZED UNDERSTANDING. PT'S L FOOT IS WRAPPED WITH SUMANTH BANDAGE. DR MURRAY TEAM ON CASE. MAG IS 1.4 TODAY. SAME YESTERDAY, EVEN AFTER K-RIDER. WILL SPEAK TO MD. WILL CONTINUE TO MONITOR PT.
[2017-03-14] MEDS: FLUCONAZOLE 100 MG TAB PO SCH (08:21)
[2017-03-14] MEDS: LACTOBACILLUS RHAMNOSUS GG 1 EACH CAP PO SCH (08:21)
[2017-03-14] MEDS: GABAPENTIN 300 MG CAP PO SCH (08:22)
[2017-03-14] MEDS: PANTOPRAZOLE 40 MG INJ VIAL IVP SCH (08:22)
[2017-03-14] MEDS: metFORMIN 500 MG TAB PO SCH ×3 (08:22→17:12)
[2017-03-14] MEDS: INSULIN DETEMIR 100 UNITS/ML 10 ML VIAL SUBQ SCH (08:24)
--- NOTE | 2017-03-14 08:33 | NUR ---
ADMINISTERED MORNING MEDS. PT TOLERATED WELL. EDUCATED PT ABOUT DM, AND HOW TO BETTER CONTROL HER CONDITION. PT VERBALIZED UNDERSTANDING.
--- NOTE | 2017-03-14 09:37 | NUR ---
ORDERS FOR HEP LOCK. D/C IV FLUIDS.
[2017-03-14] MEDS ORDERED: MAG SULF 2000 MG/WATER PREMIX 50 ML IV SCH (10:30)
--- NOTE | 2017-03-14 10:30 | NUR ---
P/T HERE TO WORK WITH PT.
--- NOTE | 2017-03-14 11:52 | NUR ---
CM NOTE CONCURRENT REVIEW FAXED TO [facility] / FAX# [phone], ATTN: DEDE #[phone]
--- NOTE | 2017-03-14 12:15 | NUR ---
PT REQUESTED PAIN MEDS. ADMINISTERED MAG, PAIN MED 12/03, AND METFORMIN. PT TOLERATED WELL. WILL CONTINUE TO MONITOR PT.
--- NOTE | 2017-03-14 14:30 | NUR ---
PT VISITING WITH FRIEND. NO SIGNS OF DISTRESS. WILL CONTINUE TO MONITOR PT.
[2017-03-14 16:00] VITALS: BP 137/87
--- NOTE | 2017-03-14 17:40 | NUR ---
PT RESTING COMFORTABLY. NO SIGNS OF DISTRESS. WILL CONTINUE TO MONITOR PT.
--- NOTE | 2017-03-14 19:26 | NUR ---
ENDORSED PT TO THE CARDING SUPERVISOR NURSE AT BEDSIDE FOR CONTINUITY OF CARE. PT IS IN STABLE CONDITION.
--- NOTE | 2017-03-14 19:27 | NUR ---
RECEIVED REPORT FROM AM NURSE. PT IS AAOX4, SITTING UP IN BED COMFORTABLY. NO SIGNS OF ACUTE DISTRESS NOTED. IV ACCESS PATENT, INTACT AND ASYMPTOMATIC, SALINE LOCK. AMBULATORY WITH CRUTCHES AT THE BEDSIDE. BOWEL SIGNS PRESENT ON ALL FOUR QUADRANTS. PLAN OF CARE DISCUSSED, PT VERBALIZED UNDERSTANDING. BED ON LOW POSITION, BILATERAL HALF SIDE RAILS UP, CALL LIGHT WITHIN REACH, WILL CONTINUE TO MONITOR.
--- NOTE | 2017-03-14 22:45 | NUR ---
PT SLEEPING, EASY TO AROUSE. NO SIGNS OF ACUTE DISTRESS. BED ON LOW POSITION, BILATERAL HALF SIDE RAILS UP, CALL LIGHT WITHIN REACH, WILL CONTINUE TO MONITOR.
[2017-03-15] VITALS: BP 131/78
--- NOTE | 2017-03-15 03:11 | NUR ---
PT IS AWAKE, TALKING ON THE PHONE. NO SIGNS OF ACUTE DISTRESS. BED ON LOW POSITION, BILATERAL HALF SIDE RAILS UP, CALL LIGHT WITHIN REACH, WILL CONTINUE TO MONITOR.
--- NOTE | 2017-03-15 04:28 | NUR ---
PT IS SLEEPING, EASY TO AROUSE. NO SIGNS OF ACUTE DISTRESS. BED ON LOW POSITION, BILATERAL HALF SIDE RAILS UP, CALL LIGHT WITHIN REACH, WILL CONTINUE TO MONITOR.
[2017-03-15 05:31] LABS: BASOPHILS # (AUTO) 0.3 K/uL (0.00-0.22); BASOPHILS % (AUTO) 3.5 % (0.0-2.0); EOSINOPHILS # (AUTO) 0.1 K/uL (0-0.4); HEMOGLOBIN 11.1 g/dL (12.0-16.0); LYMPHOCYTES # (AUTO) 2.2 K/uL (2.5-16.5); LYMPHOCYTES % (AUTO) 29.7 % (20.5-51.1); MEAN CORPUSCULAR HEMOGLOBIN 29 pg (27-31); MEAN CORPUSCULAR HGB CONC 33 g/dL (33-37); MEAN CORPUSCULAR VOLUME 88 fL (80-94); MONOCYTES # (AUTO) 0.5 K/uL (0.8-1.0); MONOCYTES % (AUTO) 6.2 % (1.7-9.3); NEUTROPHILS # (AUTO) 4.2 K/uL (1.8-7.7); NEUTROPHILS % (AUTO) 59.6 % (42.2-75.2); PLATELET COUNT (AUTO) 326 K/uL (140-450); RED BLOOD CELL COUNT(AUTO) 3.87 MIL/uL (4.20-5.40); RED CELL DISTRIBUTION WIDTH 12.3 % (11.6-13.7); WHITE BLOOD COUNT (AUTO) 7.4 K/uL (4.8-10.8)
[2017-03-15] MEDS: BLOOD GLUCOSE MONITORING 1 DEV DEV FS SCH (06:18)
[2017-03-15 06:23] LABS: CREATININE 0.6 mg/dL (0.6-1.3)
[2017-03-15] MEDS: INSULIN LISPRO SLIDING SCALE 100 UNITS/ML VIAL SUBQ PRN ×2 (06:32→12:04)
--- NOTE | 2017-03-15 07:22 | NUR ---
ENDORSED PT TO AM NURSE FOR CONTINUITY OF CARE. PT IS IN STABLE CONDITION.
--- NOTE | 2017-03-15 07:23 | NUR ---
RECEIVED REPORT FROM ELECTRONIC EQUIPMENT INSTALLER NURSE AT BEDSIDE FOR CONTINUITY OF CARE. PT IS AWAKE AND ORIENTED. INTRODUCED SELF AND UPDATED BOARD. PT IS SITTING UP EATING BREAKFAST. NO COMPLAINTS AT THIS TIME. WILL CONTINUE TO MONITOR.
[2017-03-15] MEDS ORDERED: MAGNESIUM OXIDE 400 MG TAB PO SCH (07:42)
[2017-03-15 08:00] VITALS: BP 132/87
[2017-03-15] MEDS ORDERED: MAG SULF 2000 MG/WATER PREMIX 50 ML IV SCH (08:00)
--- NOTE | 2017-03-15 08:00 | NUR ---
PATIENT SITTING IN BED WITH BREAKFAST TRAY IN FRONT. NO DISTRESS NOTED. RESPIRATIONS EVEN, UNLABORED, ON ROOM AIR. DENIES ANY PAIN OR DISCOMFORTS AT THIS TIME. IV SL ON RIGHT HAND INTACT, PATENT. LEFT FOOT DM ULCER WRAPPED IN SUMANTH BANDAGES. SKIN COLOR APPROPRIATE TO ETHNICITY, SKIN WARM TO TOUCH, NO OTHER WOUNDS/LESIONS NOTED THROUGHOUT BODY. PLAN OF CARE REVIEWED WITH PATIENT. PATIENT VERBALIZED UNDERSTANDING. SAFETY MEASURES IN PLACE, CALL LIGHT WITHIN REACH, FALL PRECAUTIONS IN PLACE, BED ALARM ON. WILL CONTINUE TO MONITOR.
[2017-03-15] MEDS ORDERED: PIPER/TAZO 3.375GM/D5W PREMIX 50 ML IV SCH ×4 (08:29→12:00)
--- NOTE | 2017-03-15 08:45 | NUR ---
P/T CAME TO SEE PT. PT WAS YELLING AT P/T FOR REPORTING THAT HE DID NOT WANT TO DO PHYSICAL THERAPY DUE TO PAIN IN RIGHT LEG. PT YELLED AND STATED THAT IF HE DID NOT DO P/T THEN IT WILL COME BACK TO HAUNT HIM. EXPLAINED TO PT THAT HE DID NOT HAVE TO DO P/T IF HE DID NOT WANT TO. AFTER P/T LEFT UNIT. PT YELLED TO CALL P/T BACK TO DO PHYSICAL THERAPY. PT WAS SEEN BY P/T AND TOLERATED BED EXERCISES. Addendum: 03/15/17 at 1016 by Sunni Hanley RN CHARTED ON WRONG PT; AVOID PREVIOUS NOTE
--- NOTE | 2017-03-15 09:00 | NUR ---
WOUND CARE DONE BY JONAS LOPEZ. TEACHING OF WOUND CARE DEMONSTRATED TO PT AND RN. PT VERBALIZED UNDERSTANDING AND TEACHING.
--- NOTE | 2017-03-15 09:20 | NUR ---
WOUND CARE RE-EVALUATION AND WOUND CARE TEACHING: ASSESSMENT: LEFT FOOT FIRST PHALANGES POST DEBRIDEMENT DIABETIC ULCER STAGE IV 0.5X0.5CM ,50% GRANULATING TISSUE WITH 50% EPITHELIUM TISSUE, PW PINK,WOUND EDGE FLAT, NO DRAINAGE, NO ODOR LEFT FOOT POST DEBRIDEMENT DIABETIC ULCER STAGE IV [id number] WOUND BED IS RED WITH MINIMUM AMT. OF SANGUINEOUS DRAINAGE, NO ODOR, WOUND SITE IS CLEAN NO S/S OF INFECTION LEFT TOES MULTIPLE SCABS HEALING WITHOUT COMPLICATION NOTICE RECOMMENDATIONS: -CLEANSE LEFT FOOT FIRST PHALANGES WITH NS. PAT DRY, APPLY HYDROGEL COVER WITH DRESSING AND SUMANTH BANDAGE QD AND PRN IF SOLING -CLEANSE LEFT FOOT POST DEBRIDEMENT DIABETIC ULCER STAGE IV WITH NS. PACK WITH IODOFORM DRESSING COVER WITH DRY DRESSING AND SUMANTH BANDAGE QD AND PRN IF SOILING. -KEEP AREA DRY AND CLEAN AT ALL TIME -FOLLOW MD ORDER FOR WEIGHT BEARING AMBULATION STATUS -CONTINUE ANTIBIOTIC TREATMENT. -FOLLOW UP FOR WOUND CARE CLINIC WHEN DISCHARGE WOUND CARE TEACHING TO PT AND PT. VERBALIZES UNDERSTANDING. ABOVE RECOMMENDATIONS DISCUSSED WITH PRIMARY RN AND DR. MORROW
[2017-03-15] MEDS: LACTOBACILLUS RHAMNOSUS GG 1 EACH CAP PO SCH (09:31)
[2017-03-15] MEDS: GABAPENTIN 300 MG CAP PO SCH (09:31)
[2017-03-15] MEDS: PANTOPRAZOLE 40 MG INJ VIAL IVP SCH (09:31)
[2017-03-15] MEDS: FLUCONAZOLE 100 MG TAB PO SCH (09:32)
[2017-03-15] MEDS: INSULIN DETEMIR 100 UNITS/ML 10 ML VIAL SUBQ SCH (09:38)
--- NOTE | 2017-03-15 09:40 | NUR ---
PATIENT SITTING IN BED. NO DISTRESS NOTED. COMPLAINTS OF PAIN ON LEFT FOOT AFTER WOUND DRESSING CHANGE BY WOUND CARE NURSE JONAS. WILL MEDICATE PER ORDERS. RESPIRATIONS EVEN, UNLABORED, ON ROOM AIR. IV PATENT, INTACT, AND INFUSING. MEDICATIONS DUE GIVEN. LEFT FOOT ULCER ASSESSED AND CHANGED BY WOUND CARE NURSE JONAS TODAY AT 0900. NO OTHER WOUNDS/LESIONS NOTED THROUGHOUT BODY. SKIN IS WARM TO TOUCH, COLOR APPROPRIATE TO ETHNICITY. SAFETY MEASURES IN PLACE, CALL LIGHT WITHIN REACH, FALL PRECAUTIONS IN PLACE, BED ALARM ON, CRUTCHES NEAR BEDSIDE. WILL CONTINUE TO MONITOR.
[2017-03-15] MEDS: metFORMIN 500 MG TAB PO SCH ×2 (09:49→12:00)
[2017-03-15] MEDS: MORPHINE SULFATE 2 MG/ML SYR IVP PRN (09:50)
--- NOTE | 2017-03-15 11:14 | NUR ---
FAXED CONCURRENT REVIEW TO [facility] [phone] PHONE [phone]
[2017-03-15] MEDS ORDERED: BLOO1STR10 FS (11:38)
[2017-03-15] MEDS ORDERED: ACET-9529 PO (11:38)
[2017-03-15] MEDS ORDERED: GLU500 PO (11:38)
[2017-03-15] MEDS ORDERED: LEVO750T51 PO (11:38)
[2017-03-15] MEDS ORDERED: LACT10CA PO (11:38)
[2017-03-15] MEDS ORDERED: HUMSLIDE SUBQ (11:38)
[2017-03-15] MEDS ORDERED: LEVEMIR SUBQ (11:38)
[2017-03-15] MEDS ORDERED: [UNRECOGNIZED DRUG - CODE] MC (11:41)
[2017-03-15] MEDS ORDERED: LANC-947 MC (11:41)
[2017-03-15] MEDS ORDERED: HUM SUBQ (11:43)
--- NOTE | 2017-03-15 11:44 | NUR ---
03/15/17 RD FOLLOW-UP ASSESSMENT COMPLETED PLEASE REFER TO NUTRITION ASSESSMENT UNDER CARE ACTIVITY FOR ESTIMATED NUTRITIONAL NEEDS. 1. CONTINUE 60G CONSISTENT CARBOHYDRATE DIET 2. PROVIDE NUTRITION THERAPY EDUCATION NEEDED 3. RD TO FOLLOW-UP 3-5 DAYS, MODERATE RISK IVAN GOODMAN, ANISH
[2017-03-15] MEDS ORDERED: FLUC100T1 PO (11:55)
[2017-03-15] MEDS ORDERED: WAST1DEV2 MC (12:47)
[2017-03-15] MEDS ORDERED: HYDRAGUARD CREAM TP ONE (13:35)
[2017-03-15] MEDS ORDERED: SKINTEGRITY HYDROGEL TP SCH ×2 (13:45→14:28)
[2017-03-15] MEDS ORDERED: HYDGEL TP (13:46)
--- NOTE | 2017-03-15 14:15 | NUR ---
PATIENT SITTING IN BED PLAYING WITH HER PHONE. NO DISTRESS NOTED. DENIES ANY PAIN. PATIENT IS BEING DISCHARGED TO HOME. DISCHARGE INSTRUCTIONS, FOLLOW-UP APPOINTMENT INFORMATION, AND REINFORCEMENT OF DAILY WOUND DRESSING CHANGE PROCEDURES PERFORMED. ANSWERED ALL QUESTIONS FROM PATIENT. PATIENT VERBALIZED COMPLETE UNDERSTANDING. GAVE PATIENT EXTRA WOUND CARE SUPPLIES IN A BAG PER MD ORDERS. REMOVED IV WITH MINIMAL BLOOD AND LUMEN COMPLETELY INTACT. ID BANDS REMOVED. ALL BELONGINGS IN BAGS WITH PATIENT. PATIENT AMBULATORY, HOWEVER REQUESTS A WHEELCHAIR TO DISCHARGE TO [facility]. PATIENT AWAITING FOR TO ARRIVE TO TAKE HER HOME VIA PRIVATE VEHICLE. WILL CONTINUE TO MONITOR.
--- NOTE | 2017-03-15 14:45 | NUR ---
PATIENT SITTING IN BED DRESSED UP AND READY TO GO HOME. AT BEDSIDE TO TAKE PATIENT HOME VIA PRIVATE VEHICLE. ALL BELONGINGS WITH PATIENT. ESCORTED PATIENT DOWN TO LOBBY VIA WHEELCHAIR. PATIENT ABLE TO AMBULATE AND GOT INTO HUSBANDS VEHICLE WITHOUT ANY PROBLEMS. PATIENT DISCHARGED HOME IN STABLE CONDITION VIA PRIVATE VEHICLE.
[2017-03-16] MEDS ORDERED: SKINTEGRITY HYDROGEL TP SCH (09:00)
== END 2017-03-15 14:45 | disposition home or self-care (01) | DRG 364 ==
LOC: MED 22:45 → MTU 03-12 00:45
PROVIDERS: ADMIT Family Medicine; ATTEND Family Medicine
PROC: 0QBR0ZZ Excision of Left Toe Phalanx, Open Approach (ICD-10-PCS; principal; 2017-03-12)
DX: E11.621 Type 2 diabetes mellitus with foot ulcer (principal); L97.524 Non-pressure chronic ulcer of other part of left foot with necrosis of bone; E11.00 Type 2 diabetes mellitus with hyperosmolarity without nonketotic hyperglycemic-hyperosmolar coma (NKHHC); E11.40 Type 2 diabetes mellitus with diabetic neuropathy, unspecified; D68.59 Other primary thrombophilia; E44.0 Moderate protein-calorie malnutrition; E11.65 Type 2 diabetes mellitus with hyperglycemia; E87.1 Hypo-osmolality and hyponatremia; L03.032 Cellulitis of left toe; N39.0 Urinary tract infection, site not specified; E83.42 Hypomagnesemia; F15.10 Other stimulant abuse, uncomplicated; B95.1 Streptococcus, group B, as the cause of diseases classified elsewhere; F17.210 Nicotine dependence, cigarettes, uncomplicated; D64.9 Anemia, unspecified; Z68.22 Body mass index [BMI] 22.0-22.9, adult; Z91.14 Patient's other noncompliance with medication regimen; Z79.4 Long term (current) use of insulin; Z79.899 Other long term (current) drug therapy; Z90.49 Acquired absence of other specified parts of digestive tract; Z98.891 History of uterine scar from previous surgery; Z83.3 Family history of diabetes mellitus
CPT/HCPCS: 36415; 71010; 73630; 76536; 80048; 80053; 80305; 81001; 82140; 82550; 82948; 83036; 83605; 83735; 83880; 83930; 83935; 84100; 84295; 84436; 84439; 84443; 84479; 84702; 85025; 85610; 85730; 87040; 87070; 87081; 87086; 87186; 93005; 93970; 96365; 96367; 96375; 97110; 97116; 97530; 99285; A6248; C9113; J1644; J1815; J1885; J1956; J2270; J2543; J3475; J7030; J7060; Q0092

== ENCOUNTER 2018-01-10 21:41 | Emergency (ER) | payer MEDICAID ==
[~2018-01-10] VITALS: Ht 175.3 cm; Wt 65.8 kg
[~2018-01-10 21:41] MED LIST changes: +ACET-9529 PO; +BLOO1STR56 FS; -CLIN300C2 PO; +FLUC100T1 PO; +GLU500 PO; +HUM SUBQ; -HUMSLIDE SUBQ; +HYDGEL TP; +LACT10CA PO; +LANC-947 MC; +LEVO750T51 PO; -METF500T4 PO; +WAST1DEV2 MC; +[UNRECOGNIZED DRUG - CODE] MC
[2018-01-10 21:48] VITALS: BP 111/69
--- NOTE | 2018-01-10 21:51 | NUR ---
TO BED # 9 AMBULATORY, REPORT GIVEN TO LISET LOPEZ
--- NOTE | 2018-01-10 21:55 | NUR ---
PATIENT PRESENTS TO ED WITH C/O RT HIP AND RT LEG PAIN PT SKIN IS PINK/WARM/DRY; AAOX4 WITH EVEN AND STEADY GAIT; LUNGS CLEAR BL; HR EVEN AND REGULAR; PT DENIES ANY FEVER, CP, SOB, OR COUGH AT THIS TIME; PATIENT STATES PAIN OF 10/10 AT THIS TIME; PATIENT POSITIONED FOR COMFORT; HOB ELEVATED; BEDRAILS UP X2; BED DOWN. ER MD MADE AWARE OF PT STATUS.
[2018-01-10] MEDS ORDERED: NACL 0.9% 500 ML IV ONE (22:06)
[2018-01-10 22:26] LABS: BASOPHILS % (AUTO) 0.2 % (0.0-2.0); EOSINOPHILS # (AUTO) 0.1 K/uL (0-0.4); EOSINOPHILS % (AUTO) 1.2 % (0.0-4.0); HEMATOCRIT 41.9 % (36-48); HEMOGLOBIN 13.8 g/dL (12.0-16.0); LYMPHOCYTES # (AUTO) 1.4 K/uL (2.5-16.5); LYMPHOCYTES % (AUTO) 21.6 % (20.5-51.1); MEAN CORPUSCULAR HEMOGLOBIN 28 pg (27-31); MEAN CORPUSCULAR HGB CONC 33 g/dL (33-37); MEAN CORPUSCULAR VOLUME 84.5 fL (80-94); MONOCYTES # (AUTO) 0.4 K/uL (0.8-1.0); MONOCYTES % (AUTO) 5.9 % (1.7-9.3); NEUTROPHILS # (AUTO) 4.7 K/uL (1.8-7.7); NEUTROPHILS % (AUTO) 71.1 % (42.2-75.2); PLATELET COUNT (AUTO) 261 K/uL (140-450); RED BLOOD CELL COUNT(AUTO) 4.96 MIL/uL (4.20-5.40); RED CELL DISTRIBUTION WIDTH 14.1 % (11.6-13.7); WHITE BLOOD COUNT (AUTO) 6.7 K/uL (4.8-10.8)
[2018-01-10] MEDS ORDERED: MORPHINE SULFATE 2 MG/ML SYR IVP ONE (22:30)
[2018-01-10 22:33] LABS: ACETONE, SERUM NEGATIVE (NEGATIVE)
[2018-01-10 22:40] LABS: ALBUMIN 3.5 g/dL (3.4-5.0); ANION GAP 9.2 (8-16); ASPARTATE AMINOTRANSFERASE 10 U/L (15-37); CHLORIDE 96 mmol/L (98-107); CREATININE 0.7 mg/dL (0.6-1.3); GFR ARICAN-AMERICAN 128 mL/min (>90); POTASSIUM 4.2 mmol/L (3.5-5.1); SODIUM SERUM 130 mmol/L (136-145); TOTAL BILIRUBIN 0.3 mg/dL (0.0-1.0); UREA NITROGEN, BLOOD 10 mg/dL (7-18)
[2018-01-10 22:42] LABS: GLUCOSE 548 mg/dL (74-106)
--- NOTE | 2018-01-10 22:42 | NUR ---
CRITICAL LAB VALUE TAKEN FROM LAB AND IMMEDIATELY REPORTED TO DR JOSE. BLOOD GLUCOSE [phone]
[2018-01-10] MEDS ORDERED: INSULIN REGULAR, HUMAN 100 UNIT/ML VIAL IVP ONE (22:50)
[2018-01-10 23:59] VITALS: BP 100/62
--- NOTE | 2018-01-11 | NUR ---
Patient discharged with v/s stable. Written and verbal after care instructions given and explained. Patient alert, oriented and verbalized understanding of instructions. Ambulatory with steady gait. All questions addressed prior to discharge. ID band removed. Patient advised to follow up with PMD. Rx of CLINDAMYCIN 300MG given. Patient educated on indication of medication including possible reaction and side effects. Opportunity to ask questions provided and answered.
== END 2018-01-11 | disposition home or self-care (01) ==
LOC: MED 21:41
DX: E10.65 Type 1 diabetes mellitus with hyperglycemia (principal); E10.40 Type 1 diabetes mellitus with diabetic neuropathy, unspecified; L03.211 Cellulitis of face; Z79.899 Other long term (current) drug therapy; Z79.84 Long term (current) use of oral hypoglycemic drugs
CPT/HCPCS: 36415; 80053; 81002; 81025; 82009; 85025; 96374; 96375; 99284; J1815; J2270